=== PATIENT | male | born 2005 | race Two or more races ===

== ENCOUNTER 2025-04-02 18:49 | Emergency (ER) | payer OTHER ==
[~2025-04-02] VITALS: Ht 165.1 cm; Wt 61.4 kg
[2025-04-02 19:17] VITALS: TEMP 98.1
[2025-04-02 20:21] VITALS: BP 141/69; PULSE 71; RESP 18; O2SAT 99
[2025-04-02] MEDS: IBUPROFEN 600 MG TABLET PO ONE (21:29)
[2025-04-02] MEDS: ACETAMINOPHEN/CODEINE 300-30 MG TABLET PO ONE (21:29)
[2025-04-02] MEDS ORDERED: IBUP-1554 PO (21:33)
[2025-04-02] MEDS ORDERED: ACET-2080 PO (21:33)
== END 2025-04-02 22:19 | disposition home or self-care (01) ==
LOC: EMS 18:49
DX: S62.632A Displaced fracture of distal phalanx of right middle finger, initial encounter for closed fracture (principal); F12.90 Cannabis use, unspecified, uncomplicated; Z91.013 Allergy to seafood; W01.0XXA Fall on same level from slipping, tripping and stumbling without subsequent striking against object, initial encounter; Y93.89 Activity, other specified; Y92.89 Other specified places as the place of occurrence of the external cause; Y99.0 Civilian activity done for income or pay
CPT/HCPCS: 99283

== ENCOUNTER 2025-04-12 13:16 | Emergency (ER) | payer OTHER ==
[~2025-04-12] VITALS: Ht 165.1 cm; Wt 59.1 kg
[~2025-04-12 13:16] MED LIST: ACET-2080 PO; IBUP-1554 PO
[2025-04-12 13:19] VITALS: BP 120/61; PULSE 64; RESP 20; TEMP 98.6; O2SAT 100
== END 2025-04-12 13:45 | disposition home or self-care (01) ==
LOC: EMS 13:18
DX: S62.632A Displaced fracture of distal phalanx of right middle finger, initial encounter for closed fracture (principal); F12.90 Cannabis use, unspecified, uncomplicated; F17.210 Nicotine dependence, cigarettes, uncomplicated; Z91.013 Allergy to seafood; X58.XXXA Exposure to other specified factors, initial encounter; Y93.89 Activity, other specified; Y92.89 Other specified places as the place of occurrence of the external cause; Y99.8 Other external cause status
CPT/HCPCS: 99282; Z7502